=== PATIENT | male | born 1965 | race Caucasian/White ===

== ENCOUNTER 2017-12-27 14:34 | Emergency (ER) | payer SELFPAY ==
[~2017-12-27] VITALS: Ht 172.7 cm; Wt 77.5 kg
[2017-12-27 14:35] VITALS: BP 173/124; PULSE 126; RESP 20; TEMP 97.5; O2SAT 100
[2017-12-27] MEDS ORDERED: IOHEXOL 350 MG/ML 10 ML VIAL (for RAD DIAG) IVCONTRAST ONE (14:35)
[2017-12-27 16:01] LABS: AUTOMATED NEUTROPHIL # 4.8 TH/MM3 (1.8-7.7); BASOPHIL # 0.1 TH/MM3 (0-0.2); BASOPHIL % 1.2 % (0.0-2.0); EOSINOPHIL # 0.1 TH/MM3 (0-0.4); EOSINOPHIL % 1.7 % (0.0-4.0); HEMATOCRIT 46.9 % (39.0-51.0); HEMOGLOBIN 16.2 GM/DL (13.0-17.0); LYMPH % 28.4 % (9.0-44.0); LYMPHOCYTE # 2.3 TH/MM3 (1.0-4.8); MEAN CELL VOLUME 94.2 FL (80.0-100.0); MEAN CORPUSCULAR HEMOGLOBIN 32.5 PG (27.0-34.0); MEAN CORPUSCULAR HGB CONC 34.5 % (32.0-36.0); MEAN PLATELET VOLUME 8.3 FL (7.0-11.0); MONO % 10.7 % (0.0-8.0); MONOCYTE # 0.9 TH/MM3 (0-0.9); PLATELET COUNT 344 TH/MM3 (150-450); RED BLOOD COUNT 4.98 MIL/MM3 (4.50-5.90); RED CELL DISTRIBUTION WIDTH 15.2 % (11.6-17.2); WHITE BLOOD COUNT 8.2 TH/MM3 (4.0-11.0)
[2017-12-27 16:10] LABS: PROTHROMBIN TIME - PATIENT 10.6 SEC (9.8-11.6)
[2017-12-27 16:18] LABS: AST (GOT) 25 U/L (15-37); BICARBONATE 24.1 MEQ/L (21.0-32.0); BLOOD UREA NITROGEN 10 MG/DL (7-18); CALCIUM 9.6 MG/DL (8.5-10.1); CHLORIDE 104 MEQ/L (98-107); CREATININE 0.97 MG/DL (0.60-1.30); GLOMERULAR FILTRATION RATE 82 ML/MIN (>89); GLUCOSE,RANDOM 79 MG/DL (74-106); SODIUM (NA) 138 MEQ/L (136-145)
[2017-12-27 16:19] LABS: ALT (GPT) 24 U/L (12-78)
[2017-12-27 16:21] LABS: ALKALINE PHOSPHATASE 74 U/L (45-117); TOTAL BILIRUBIN ADULT 0.5 MG/DL (0.2-1.0); TOTAL PROTEIN 7.9 GM/DL (6.4-8.2)
[2017-12-27 16:27] LABS: BLOOD, URINE NEG (NEG); GLUCOSE,URINE NEG (NEG); HYALINE CAST, URINE 4 /lpf (RARE); KETONE, URINE 150 mg/dL (NEG); MUCUS URINE MANY /lpf (OCC); NITRITE,URINE NEG (NEG); SQUAMOUS EPITHELIAL CELL URINE <1 /hpf (0-5); URINE COLOR YELLOW (YELLW/STRAW); URINE LEUKOCYTE ESTERASE NEG (NEG)
[2017-12-27 16:31] LABS: BILIRUBIN, URINE NEG (NEG)
[2017-12-27] MEDS ORDERED: SODIUM CHLOR 0.9% 1000 ML INJ 1,000 ML IV SCH (17:18)
[2017-12-27] MEDS ORDERED: SODIUM CHLORIDE 0.9% FLUSH 10 ML FLUSH IV FLUSH PRN (17:30)
[2017-12-27] MEDS ORDERED: ONDANSETRON HCL 4 MG/2 ML VIAL IVP ONE (17:30)
[2017-12-27 17:53] VITALS: BP 135/80; PULSE 94; RESP 16; O2SAT 98
--- NOTE | 2017-12-27 18:33 | PD ---
HPI Chief Complaint: Abdominal Pain Time Seen by Provider: 17:16 Travel History International Travel<30 days: No Contact w/Intl Traveler<30days: No Traveled to known affect area: No History of Present Illness HPI 52-year-old male presents to the emergency Department with complaint of nausea, vomiting, diarrhea, subjective fevers, chills 4 days. Abdominal pain is generalized; he says it's been moving all over. Denies history of abdominal surgeries. Denies dysuria, penile discharge. Denies body aches, recent illness to include cough, nasal congestion, sore throat, ear pain. Denies blood in his urine, stool, vomit. Reports social alcohol use. Rates pain . Describes it as a sharp pain. Has tried eating and drinking with continued vomiting and diarrhea. No known sick contacts. Has not taken any medication or drainage was to alleviate symptoms. No known aggravating or relieving factors. Denies significant past medical history. No primary care provider. No known allergies. Has no other medical complaints. No other modifying factors or associated signs and symptoms. PFSH Social History Tobacco Use: No Allergies-Medications (Allergen,Severity, Reaction): Coded Allergies: No Known Allergies (Unverified , 12/27/17) Reported Meds & Prescriptions Reported Meds & Active Scripts Active Phenergan (Promethazine HCl) 25 Mg Tablet 25 Mg PO Q6H PRN Review of Systems Except as stated in HPI: all other systems reviewed are Neg Physical Exam Narrative GENERAL: Well-nourished, well-developed male patient, in no acute distress; afebrile SKIN: Warm and dry. HEAD: Atraumatic. Normocephalic. EYES: Pupils equal and round. No scleral icterus. No injection or drainage. ENT: Mucosa pink and moist. Airway patent. NECK: Trachea midline. CARDIOVASCULAR: Regular rate and rhythm. No murmur appreciated. RESPIRATORY: No accessory muscle use. Clear to auscultation. Breath sounds equal bilaterally. GASTROINTESTINAL: Abdomen soft, tenderness on palpation to RLQ, nondistended. Hepatic and splenic margins not palpable. Bowel sounds are active 4 quadrants. Nonrigid. No guarding. BACK: No CVA tenderness. MUSCULOSKELETAL: No obvious deformities. No clubbing. No cyanosis. No edema. NEUROLOGICAL: Awake and alert. Oriented 3. No obvious cranial nerve deficits. Motor grossly within normal limits. Normal speech. PSYCHIATRIC: Appropriate mood and affect; insight and judgment normal. Data Data Last Documented VS Vital Signs Date Time Temp Pulse Resp B/P (MAP) Pulse Ox O2 Delivery O2 Flow Rate FiO2 12/27/17 20:21 12/27/17 17:53 94 16 98 Room Air 12/27/17 14:35 97.5 Orders Orders Complete Blood Count With Diff (12/27/17 15:01) Comprehensive Metabolic Panel (12/27/17 15:01) Lipase (12/27/17 15:01) Prothrombin Time / Inr (Pt) (12/27/17 15:01) Act Partial Throm Time (Ptt) (12/27/17 15:01) Urinalysis - C+S If Indicated (12/27/17 15:01) Influenzae A/B Antigen (12/27/17 17:18) Iv Access Insert/Monitor (12/27/17 17:18) Ondansetron Inj (Zofran Inj) (12/27/17 17:30) Sodium Chlor 0.9% 1000 Ml Inj (Ns 1000 M (12/27/17 17:18) Sodium Chloride 0.9% Flush (Ns Flush) (12/27/17 17:30) Ct Abd/Pel W Iv Contrast(Rout) (12/27/17 17:57) Iohexol 350 Inj (Omnipaque 350 Inj) (12/27/17 14:35) Prochlorperazine Inj (Compazine Inj) (12/27/17 19:30) Ed Discharge Order (12/27/17 19:58) Labs Laboratory Tests Test 12/27/17 15:20 White Blood Count 8.2 TH/MM3 Red Blood Count 4.98 MIL/MM3 Hemoglobin 16.2 GM/DL Hematocrit 46.9 % Mean Corpuscular Volume 94.2 FL Mean Corpuscular Hemoglobin 32.5 PG Mean Corpuscular Hemoglobin Concent 34.5 % Red Cell Distribution Width 15.2 % Platelet Count 344 TH/MM3 Mean Platelet Volume 8.3 FL Neutrophils (%) (Auto) 58.0 % Lymphocytes (%) (Auto) 28.4 % Monocytes (%) (Auto) 10.7 % Eosinophils (%) (Auto) 1.7 % Basophils (%) (Auto) 1.2 % Neutrophils # (Auto) 4.8 TH/MM3 Lymphocytes # (Auto) 2.3 TH/MM3 Monocytes # (Auto) 0.9 TH/MM3 Eosinophils # (Auto) 0.1 TH/MM3 Basophils # (Auto) 0.1 TH/MM3 CBC Comment DIFF FINAL Differential Comment Prothrombin Time 10.6 SEC Prothromb Time International Ratio 1.0 RATIO Activated Partial Thromboplast Time 31.3 SEC Urine Color YELLOW Urine Turbidity CLEAR Urine pH 6.0 Urine Specific [place] 1.029 Urine Protein TRACE mg/dL Urine Glucose (UA) NEG mg/dL Urine Ketones 150 mg/dL Urine Occult Blood NEG Urine Nitrite NEG Urine Bilirubin NEG Urine Urobilinogen 4.0 MG/DL Urine Leukocyte Esterase NEG Urine RBC LESS THAN 1 /hpf Urine WBC 1 /hpf Urine Squamous Epithelial Cells <1 /hpf Urine Hyaline Casts 4 /lpf Urine Mucus MANY /lpf Microscopic Urinalysis Comment CULT NOT INDICATED Blood Urea Nitrogen 10 MG/DL Creatinine 0.97 MG/DL Random Glucose 79 MG/DL Total Protein 7.9 GM/DL Albumin 4.0 GM/DL Calcium Level 9.6 MG/DL Alkaline Phosphatase 74 U/L Aspartate Amino Transf (AST/SGOT) 25 U/L Alanine Aminotransferase (ALT/SGPT) 24 U/L Total Bilirubin 0.5 MG/DL Sodium Level 138 MEQ/L Potassium Level 4.0 MEQ/L Chloride Level 104 MEQ/L Carbon Dioxide Level 24.1 MEQ/L Anion Gap 10 MEQ/L Estimat Glomerular Filtration Rate 82 ML/MIN Lipase 90 U/L [facility] Medical Decision Making Medical Screen Exam Complete: Yes Emergency Medical Condition: Yes Medical Record Reviewed: Yes Differential Diagnosis Gastroenteritis, appendicitis, gastritis, diverticulitis, colitis, influenza Narrative Course 52-year-old male with vomiting and diarrhea and subjective fevers 4 days. On exam patient has right lower quadrant abdominal pain. CBC, CMP, lipase, coags, urinalysis ordered in triage. 1756: CBC, CMP unremarkable. Lipase 90. Coags unremarkable. Urinalysis without signs of infection. CT abdomen/pelvis ordered. IV, normal saline bolus , Zofran, Toradol ordered. 1899: Report given to MURTAZA Barnes at change of shift. See her note for final patient disposition. Scripts Promethazine (Phenergan) 25 Mg Tablet 25 MG PO Q6H Y for NAUSEA OR VOMITING, #10 TAB 0 Refills Prov: Maria Victoria Ordaz 12/27/17 Carolyn Senior Dec 27, 2017 18:33
--- NOTE | 2017-12-27 18:53 | RADRPT ---
EXAM DATE/TIME: 12/27/2017 18:37 [place] COMPARISON: No previous studies available for comparison. INDICATIONS : Nausea, vomiting, diarrhea, epigasrtic pain for four days. IV CONTRAST: 70 cc Omnipaque 350 (iohexol) IV ORAL CONTRAST: No oral contrast ingested. RADIATION DOSE: CTDIvol (mGy) MEDICAL HISTORY : None SURGICAL HISTORY : None. ENCOUNTER: Initial ACUITY: 4 - 6 days PAIN SCALE: 6/10 LOCATION: epigastric TECHNIQUE: Volumetric scanning of the abdomen and pelvis was performed. Using automated exposure control and ad justment of the mA and/or kV according to patient size, radiation dose was kept as low as reasonably achievable to obtain optimal diagnostic quality images. DICOM format image data is available electro nically for review and comparison. FINDINGS: LOWER LUNGS: The visualized lower lungs are clear. LIVER: Homogeneous density without lesion. There is no dilation of the biliary tree. No calcified gallston es. SPLEEN: Normal size without lesion. PANCREAS: Within normal limits. KIDNEYS: Normal in size and shape. There is no mass or hydronephrosis. There 2 tiny 2 mm nonobstructing stone s in the mid and lower pole the right kidney. There is a 9 mm benign cyst in the lower pole the right kidney. ADRENAL GLANDS: Within normal limits. VASCULAR: There is no aortic aneurysm. BOWEL/MESENTERY: The stomach, small bowel, and colon demonstrate no acute abnormality. There is no abnormal distention of large or small bowel. However there are some mild air fluid levels in some loops of small bowel. This is nonspecific. There is no free intraperitoneal air or fluid. The appendix is unremarkable. No inflammatory changes are demonstrated. ABDOMINAL WALL: Within normal limits. RETROPERITONEUM: There is no lymphadenopathy. BLADDER: No wall thickening or mass. REPRODUCTIVE: Within normal limits. INGUINAL: There is no lymphadenopathy or hernia. MUSCULOSKELETAL: Within normal limits for patient age. CONCLUSION: 1. 2 tiny 2 mm nonobstructive stones in the right kidney. 2. 9 mm benign right renal cyst. 3. There is a nonspecific bowel gas pattern with some air fluid levels seen in the small bowel withou t significant distention. This is suggestive of an ileus. No definite mechanical obstruction.. 4. Otherwise unremarkable exam for patient's age. Grant Giron MD on December 27, 2017 at 18:46 Board Certified Radiologist. This report was verified electronically.
[2017-12-27] MEDS ORDERED: PROCHLORPERAZINE INJ 10 MG/2 ML VIAL IV PUSH ONE (19:30)
[2017-12-27] MEDS ORDERED: PROM25TA10 PO (19:54)
--- NOTE | 2017-12-27 19:56 | PD ---
Physical Exam Date Seen by Provider: Dec 27, 2017 Time Seen by Provider: 19:46 Narrative For full history and physical examination please see previous providers note. I assumed care of this patient change of shift. At that time he was given a p.o. challenge to see if he could tolerate oral fluids. Data Data Last Documented VS Vital Signs Date Time Temp Pulse Resp B/P (MAP) Pulse Ox O2 Delivery O2 Flow Rate FiO2 12/27/17 17:53 94 16 135/80 (98) 98 Room Air 12/27/17 14:35 97.5 Orders Orders Complete Blood Count With Diff (12/27/17 15:01) Comprehensive Metabolic Panel (12/27/17 15:01) Lipase (12/27/17 15:01) Prothrombin Time / Inr (Pt) (12/27/17 15:01) Act Partial Throm Time (Ptt) (12/27/17 15:01) Urinalysis - C+S If Indicated (12/27/17 15:01) Influenzae A/B Antigen (12/27/17 17:18) Iv Access Insert/Monitor (12/27/17 17:18) Ondansetron Inj (Zofran Inj) (12/27/17 17:30) Sodium Chlor 0.9% 1000 Ml Inj (Ns 1000 M (12/27/17 17:18) Sodium Chloride 0.9% Flush (Ns Flush) (12/27/17 17:30) Ct Abd/Pel W Iv Contrast(Rout) (12/27/17 17:57) Iohexol 350 Inj (Omnipaque 350 Inj) (12/27/17 14:35) Prochlorperazine Inj (Compazine Inj) (12/27/17 19:30) Ed Discharge Order (12/27/17 19:58) Labs Laboratory Tests Test 12/27/17 15:20 White Blood Count 8.2 TH/MM3 Red Blood Count 4.98 MIL/MM3 Hemoglobin 16.2 GM/DL Hematocrit 46.9 % Mean Corpuscular Volume 94.2 FL Mean Corpuscular Hemoglobin 32.5 PG Mean Corpuscular Hemoglobin Concent 34.5 % Red Cell Distribution Width 15.2 % Platelet Count 344 TH/MM3 Mean Platelet Volume 8.3 FL Neutrophils (%) (Auto) 58.0 % Lymphocytes (%) (Auto) 28.4 % Monocytes (%) (Auto) 10.7 % Eosinophils (%) (Auto) 1.7 % Basophils (%) (Auto) 1.2 % Neutrophils # (Auto) 4.8 TH/MM3 Lymphocytes # (Auto) 2.3 TH/MM3 Monocytes # (Auto) 0.9 TH/MM3 Eosinophils # (Auto) 0.1 TH/MM3 Basophils # (Auto) 0.1 TH/MM3 CBC Comment DIFF FINAL Differential Comment Prothrombin Time 10.6 SEC Prothromb Time International Ratio 1.0 RATIO Activated Partial Thromboplast Time 31.3 SEC Urine Color YELLOW Urine Turbidity CLEAR Urine pH 6.0 Urine Specific [place] 1.029 Urine Protein TRACE mg/dL Urine Glucose (UA) NEG mg/dL Urine Ketones 150 mg/dL Urine Occult Blood NEG Urine Nitrite NEG Urine Bilirubin NEG Urine Urobilinogen 4.0 MG/DL Urine Leukocyte Esterase NEG Urine RBC LESS THAN 1 /hpf Urine WBC 1 /hpf Urine Squamous Epithelial Cells <1 /hpf Urine Hyaline Casts 4 /lpf Urine Mucus MANY /lpf Microscopic Urinalysis Comment CULT NOT INDICATED Blood Urea Nitrogen 10 MG/DL Creatinine 0.97 MG/DL Random Glucose 79 MG/DL Total Protein 7.9 GM/DL Albumin 4.0 GM/DL Calcium Level 9.6 MG/DL Alkaline Phosphatase 74 U/L Aspartate Amino Transf (AST/SGOT) 25 U/L Alanine Aminotransferase (ALT/SGPT) 24 U/L Total Bilirubin 0.5 MG/DL Sodium Level 138 MEQ/L Potassium Level 4.0 MEQ/L Chloride Level 104 MEQ/L Carbon Dioxide Level 24.1 MEQ/L Anion Gap 10 MEQ/L Estimat Glomerular Filtration Rate 82 ML/MIN Lipase 90 U/L [facility] Medical Record Reviewed: Yes Supervised Visit with GABRIELLA: No Interpretation(s) Last Impressions Abdomen/Pelvis CT 12/27/17 [id number] Signed Impressions: Service Date/Time: Wednesday, December 27, 2017 18:37 - CONCLUSION: 1. 2 tiny 2 mm nonobstructive stones in the right kidney. 2. 9 mm benign right renal cyst. 3. There is a nonspecific bowel gas pattern with some air fluid levels seen in the small bowel without significant distention. This is suggestive of an ileus. No definite mechanical obstruction.. 4. Otherwise unremarkable exam for patient's age. Grant Giron MD Laboratory Tests Test 12/27/17 15:20 White Blood Count 8.2 TH/MM3 Red Blood Count 4.98 MIL/MM3 Hemoglobin 16.2 GM/DL Hematocrit 46.9 % Mean Corpuscular Volume 94.2 FL Mean Corpuscular Hemoglobin 32.5 PG Mean Corpuscular Hemoglobin Concent 34.5 % Red Cell Distribution Width 15.2 % Platelet Count 344 TH/MM3 Mean Platelet Volume 8.3 FL Neutrophils (%) (Auto) 58.0 % Lymphocytes (%) (Auto) 28.4 % Monocytes (%) (Auto) 10.7 % Eosinophils (%) (Auto) 1.7 % Basophils (%) (Auto) 1.2 % Neutrophils # (Auto) 4.8 TH/MM3 Lymphocytes # (Auto) 2.3 TH/MM3 Monocytes # (Auto) 0.9 TH/MM3 Eosinophils # (Auto) 0.1 TH/MM3 Basophils # (Auto) 0.1 TH/MM3 CBC Comment DIFF FINAL Differential Comment Prothrombin Time 10.6 SEC Prothromb Time International Ratio 1.0 RATIO Activated Partial Thromboplast Time 31.3 SEC Urine Color YELLOW Urine Turbidity CLEAR Urine pH 6.0 Urine Specific [place] 1.029 Urine Protein TRACE mg/dL Urine Glucose (UA) NEG mg/dL Urine Ketones 150 mg/dL Urine Occult Blood NEG Urine Nitrite NEG Urine Bilirubin NEG Urine Urobilinogen 4.0 MG/DL Urine Leukocyte Esterase NEG Urine RBC LESS THAN 1 /hpf Urine WBC 1 /hpf Urine Squamous Epithelial Cells <1 /hpf Urine Hyaline Casts 4 /lpf Urine Mucus MANY /lpf Microscopic Urinalysis Comment CULT NOT INDICATED Blood Urea Nitrogen 10 MG/DL Creatinine 0.97 MG/DL Random Glucose 79 MG/DL Total Protein 7.9 GM/DL Albumin 4.0 GM/DL Calcium Level 9.6 MG/DL Alkaline Phosphatase 74 U/L Aspartate Amino Transf (AST/SGOT) 25 U/L Alanine Aminotransferase (ALT/SGPT) 24 U/L Total Bilirubin 0.5 MG/DL Sodium Level 138 MEQ/L Potassium Level 4.0 MEQ/L Chloride Level 104 MEQ/L Carbon Dioxide Level 24.1 MEQ/L Anion Gap 10 MEQ/L Estimat Glomerular Filtration Rate 82 ML/MIN Lipase 90 U/L Vital Signs Date Time Temp Pulse Resp B/P (MAP) Pulse Ox O2 Delivery O2 Flow Rate FiO2 12/27/17 17:53 94 16 135/80 (98) 98 Room Air 12/27/17 14:35 97.5 126 20 173/124 (140) 100 Room Air Narrative Course Patient is a 52-year-old male that presented to the emergency room for evaluation of nausea, vomiting, diarrhea, subjective fever and chills for the last 4 days. Patient's vital signs are stable, labs reviewed, there are no acute abnormalities identified, specifically there is no electrolyte abnormality to suggest he has not been keeping any food or fluids down. CT scan of the abdomen and pelvis resulted with 2 tiny 2 mm nonobstructive stones in the right kidney. 9 mm benign right renal cyst. There is a nonspecific bowel gas pattern with air-fluid level seen in the small bowel without significant distention. This is suggestive of an ileus, there is no d definite mechanical obstruction. Exam is otherwise unremarkable. This was read by the radiologist. Patient tolerated Gatorade in the emergency department. He was given Compazine due to report of mild nausea but again he has not vomited any further. Patient will be discharged home with oral antiemetic. He was encouraged to maintain adequate fluid intake, increasing his diet as tolerated. Patient was given strict return precautions. He was encouraged to follow-up with a primary doctor at the [facility] clinic. Patient verbalized understanding of these instructions. Patient stable for discharge. Diagnosis Primary Impression: Gastroenteritis Referrals: [facility] Patient Instructions: Diet for Stomach Ulcers and Gastritis (ED), Gastroenteritis (ED), General Instructions Departure Forms: Tests/Procedures, Work Release Enter return to work date: Dec 31, 2017 Additional Instruction: Maintain oral fluid intake Take medications as needed as directed Advance diet as tolerated Follow-up at the [facility] Return to the emergency department for any new or worsening symptoms Phenergan may make you drowsy, do not drive or operate machinery until you know how you react to this medication. Med/Other Pt SpecificInfo: Prescription(s) given Scripts Promethazine (Phenergan) 25 Mg Tablet 25 MG PO Q6H Y for NAUSEA OR VOMITING, #10 TAB 0 Refills Prov: Maria Victoria Ordaz 12/27/17 Disposition: 01 DISCHARGE HOME Condition: Stable Maria Victoria Ordaz Dec 27, 2017 19:56
== END 2017-12-27 20:37 | disposition home or self-care (01) ==
LOC: NEPD 14:34
DX: K52.9 Noninfective gastroenteritis and colitis, unspecified (principal); N20.0 Calculus of kidney; N28.1 Cyst of kidney, acquired; R10.84 Generalized abdominal pain
CPT/HCPCS: 74177; 80053; 81001; 83690; 85025; 85610; 85730; 87804; 96361; 96374; 96375; 99285; J0780; J2405; J7030; Q9967

== ENCOUNTER 2018-01-21 18:51 | Emergency (ER) | payer SELFPAY ==
[~2018-01-21] VITALS: Ht 172.7 cm; Wt 68.0 kg
[~2018-01-21 18:51] MED LIST: PROM25TA10 PO
[2018-01-21 19:20] VITALS: BP 126/79; PULSE 95; RESP 20; TEMP 97.7; O2SAT 100
[2018-01-21] MEDS ORDERED: VENL150T PO (19:26)
[2018-01-21] MEDS ORDERED: MIRT30TA PO (19:26)
[2018-01-21 20:16] VITALS: BP 148/94; PULSE 102; RESP 18; O2SAT 98
[2018-01-21 20:59] LABS: AUTOMATED NEUTROPHIL # 7.5 TH/MM3 (1.8-7.7); BASOPHIL # 0.1 TH/MM3 (0-0.2); BASOPHIL % 0.9 % (0.0-2.0); EOSINOPHIL # 0.4 TH/MM3 (0-0.4); HEMOGLOBIN 14.9 GM/DL (13.0-17.0); LYMPH % 26.5 % (9.0-44.0); LYMPHOCYTE # 3.2 TH/MM3 (1.0-4.8); MEAN CELL VOLUME 94.9 FL (80.0-100.0); MEAN CORPUSCULAR HEMOGLOBIN 32.3 PG (27.0-34.0); MONO % 7.5 % (0.0-8.0); MONOCYTE # 0.9 TH/MM3 (0-0.9); NEUT % 62.1 % (16.0-70.0); PLATELET COUNT 319 TH/MM3 (150-450); RED BLOOD COUNT 4.63 MIL/MM3 (4.50-5.90); WHITE BLOOD COUNT 12.1 TH/MM3 (4.0-11.0)
[2018-01-21 21:13] LABS: ALBUMIN 4.1 GM/DL (3.4-5.0); AST (GOT) 24 U/L (15-37); BICARBONATE 23.7 MEQ/L (21.0-32.0); BLOOD UREA NITROGEN 9 MG/DL (7-18); CALCIUM 9.3 MG/DL (8.5-10.1); CHLORIDE 105 MEQ/L (98-107); CREATININE 0.86 MG/DL (0.60-1.30); GLOMERULAR FILTRATION RATE 94 ML/MIN (>89); GLUCOSE,RANDOM 84 MG/DL (74-106); SODIUM (NA) 140 MEQ/L (136-145)
[2018-01-21 21:14] LABS: ALT (GPT) 21 U/L (12-78)
[2018-01-21 21:16] LABS: ALKALINE PHOSPHATASE 74 U/L (45-117); TOTAL BILIRUBIN ADULT 0.1 MG/DL (0.2-1.0); TOTAL PROTEIN 7.9 GM/DL (6.4-8.2)
[2018-01-21 21:18] LABS: ACETAMINOPHEN LESS THAN 2.0 MCG/ML (10.0-30.0)
--- NOTE | 2018-01-21 22:14 | PD ---
HPI Chief Complaint: Psychiatric Symptoms Time Seen by Provider: 20:15 Travel History International Travel<30 days: No Contact w/Intl Traveler<30days: No Traveled to known affect area: No History of Present Illness HPI Patient is a 52-year-old male who comes in claiming he has an alter ego. At first, in triage, patient was just acting intoxicated. When placed in the room and I tried to speak with him he said he want to speak with Jefry. Patient provides very little history, is obviously intoxicated. While speaking with him , he often forgets that he is speaking as his alter ego, Jefry. PFSH Past Medical History Anxiety: Yes Diminished Hearing: No Schizophrenia: Yes Tetanus Vaccination: Unknown Influenza Vaccination: No Past Surgical History Surgical History: Unable to Obtain Social History Alcohol Use: Yes (daily) Tobacco Use: Yes (chewing tobacco) Substance Use: No Allergies-Medications (Allergen,Severity, Reaction): Coded Allergies: No Known Allergies (Unverified , 01/21/18) Reported Meds & Prescriptions Reported Meds & Active Scripts Active Phenergan (Promethazine HCl) 25 Mg Tablet 25 Mg PO Q6H PRN Reported Venlafaxine ER 24 HR (Venlafaxine HCl) 150 Mg Tab 150 Mg PO DAILY Mirtazapine 30 Mg Tab 30 Mg PO HS Review of Systems ROS Limitations: Intoxication Physical Exam Narrative GENERAL: Awake and alert, in no acute distress. SKIN: Focused skin assessment warm/dry. HEAD: Atraumatic. Normocephalic. EYES: Pupils equal and round and reactive. No scleral icterus. EOMI. ENT: Mucous membranes pink and moist. NECK: Trachea midline. No JVD. CARDIOVASCULAR: Regular rate and rhythm. No murmur appreciated. RESPIRATORY: No accessory muscle use. Clear to auscultation. Breath sounds equal bilaterally. GASTROINTESTINAL: Abdomen soft, non-tender, nondistended. MUSCULOSKELETAL: No obvious deformities. No clubbing. No cyanosis. No edema. NEUROLOGICAL: Awake and alert. No obvious cranial nerve deficits. Motor grossly within normal limits. Normal speech. PSYCHIATRIC: Appropriate mood and affect; insight and judgment normal. Data Data Last Documented VS Vital Signs Date Time Temp Pulse Resp B/P (MAP) Pulse Ox O2 Delivery O2 Flow Rate FiO2 01/21/18 23:12 98.2 107 18 130/80 (97) 96 Room Air Orders Orders Complete Blood Count With Diff (01/21/18 20:20) Comprehensive Metabolic Panel (01/21/18 20:20) Psych Screen (01/21/18 20:20) Drug Screen, Random Urine (01/21/18 20:20) Alcohol (Ethanol) (01/21/18 20:20) Salicylates (Aspirin) (01/21/18 20:20) Tylenol (Acetaminophen) (01/21/18 20:20) Labs Laboratory Tests Test 01/21/18 20:30 White Blood Count 12.1 TH/MM3 Red Blood Count 4.63 MIL/MM3 Hemoglobin 14.9 GM/DL Hematocrit 44.0 % Mean Corpuscular Volume 94.9 FL Mean Corpuscular Hemoglobin 32.3 PG Mean Corpuscular Hemoglobin Concent 34.0 % Red Cell Distribution Width 15.0 % Platelet Count 319 TH/MM3 Mean Platelet Volume 8.0 FL Neutrophils (%) (Auto) 62.1 % Lymphocytes (%) (Auto) 26.5 % Monocytes (%) (Auto) 7.5 % Eosinophils (%) (Auto) 3.0 % Basophils (%) (Auto) 0.9 % Neutrophils # (Auto) 7.5 TH/MM3 Lymphocytes # (Auto) 3.2 TH/MM3 Monocytes # (Auto) 0.9 TH/MM3 Eosinophils # (Auto) 0.4 TH/MM3 Basophils # (Auto) 0.1 TH/MM3 CBC Comment DIFF FINAL Differential Comment Blood Urea Nitrogen 9 MG/DL Creatinine 0.86 MG/DL Random Glucose 84 MG/DL Total Protein 7.9 GM/DL Albumin 4.1 GM/DL Calcium Level 9.3 MG/DL Alkaline Phosphatase 74 U/L Aspartate Amino Transf (AST/SGOT) 24 U/L Alanine Aminotransferase (ALT/SGPT) 21 U/L Total Bilirubin 0.1 MG/DL Sodium Level 140 MEQ/L Potassium Level 3.7 MEQ/L Chloride Level 105 MEQ/L Carbon Dioxide Level 23.7 MEQ/L Anion Gap 11 MEQ/L Estimat Glomerular Filtration Rate 94 ML/MIN Salicylates Level 4.4 MG/DL Acetaminophen Level LESS THAN 2.0 MCG/ML Ethyl Alcohol Level 279 MG/DL MDM Medical Decision Making Medical Screen Exam Complete: Yes Emergency Medical Condition: Yes Medical Record Reviewed: Yes Differential Diagnosis psychosis vs intoxication vs malingering Narrative Course Patient is a 52 year old male who comes in claiming he has an alter ego. Patient is obviously intoxicated. Exam shows no acute abnormalities. Labs sent show an elevated alcohol level. Patient will be medically cleared for psychiatric evaluation. Diagnosis Primary Impression: Alcohol intoxication Qualified Codes: F10.920 - Alcohol use, unspecified with intoxication, uncomplicated Gosia Peralta MD Jan 21, 2018 22:14
[2018-01-21 23:12] VITALS: BP 130/80; PULSE 107; RESP 18; TEMP 98.2; O2SAT 96
[2018-01-22 04:12] VITALS: BP 131/84; PULSE 115; RESP 17; TEMP 98.1; O2SAT 98
[2018-01-22 06:37] VITALS: BP 137/71; PULSE 104; RESP 18; TEMP 98.8; O2SAT 98
== END 2018-01-22 06:52 | disposition home or self-care (01) ==
LOC: NEPD 18:51 → NEPJ 01-22 06:52
DX: F10.129 Alcohol abuse with intoxication, unspecified (principal); F41.9 Anxiety disorder, unspecified; F20.9 Schizophrenia, unspecified; F17.220 Nicotine dependence, chewing tobacco, uncomplicated; Z79.899 Other long term (current) drug therapy
CPT/HCPCS: 80053; 80307; 85025; 99283